=== PATIENT | female | born 1945 | race Caucasian/White ===

== ENCOUNTER 2018-10-05 16:43 | Observation (INO) | payer MEDICARE ==
[~2018-10-05] VITALS: Ht 154.9 cm; Wt 98.9 kg
--- OUTSIDE RECORDS SUMMARY | 2018-10-05 16:46 | XMS REPORT | Continuity of Care Document ---
Author Author [facility] Interface Address Unknown Phone Unavailable Problems Problem Status Onset Date Classification Date Reported Comments Source SOB Active 05/22/2018 [facility] SOB Active 05/22/2018 [facility] ACUTE ANEMIA Active 04/21/2018 [facility] ACUTE ANEMIA Active 04/21/2018 [facility] Laceration without foreign body of scalp, initial encounter 04/14/2018 08/24/2018 [facility] Closed head injury 02/04/2018 08/24/2018 [facility] Thyroid nodule 02/04/2018 08/24/2018 [facility] Laceration of scalp 02/04/2018 08/24/2018 [facility] FALL Active 02/04/2018 [facility] FALL Active 02/04/2018 [facility] Acute bronchitis, unspecified 01/03/2018 07/11/2018 [facility] SHORTNESS OF BREATH Active 12/21/2017 [facility] ACUTE EXACERBATION OF COPD Active 12/21/2017 [facility] Unspecified injury of head, initial encounter 08/24/2018 [facility] Nontoxic single thyroid nodule 08/24/2018 [facility] Fall in shower or empty bathtub, initial encounter 08/24/2018 [facility] Other shelter drug therapy 08/24/2018 [facility] Chronic obstructive pulmonary disease with exacerbation 07/11/2018 [facility] Chronic obstructive pulmonary disease with acute lower respiratory infection 07/11/2018 [facility] Obstructive sleep apnea (pediatric) 07/11/2018 [facility] Acute kidney failure, unspecified 07/11/2018 [facility] Obesity, unspecified 07/11/2018 [facility] Body mass index 36.0-36.9, adult 07/11/2018 [facility] ANEMIA, UNSPECIFIED Active [facility] CHRONIC OBSTRUCTIVE PULMONARY DISEASE W Active [facility] Medications Medication Details Route Status Patient Instructions Ordering Provider Order Date Source Acetylcysteine 200 MG/ML Inhalant Solution 400 mg, 2 mL, Route: INHALATION, Drug Form: SOLN, Dosing Weight 88.636, kg, RQ6H, Start date: 12/22/17 14:00:00 CDT, Duration: 30 day, Stop date: 01/21/18 8:00:00 CDT Inactive 12/22/2017 [facility] azithromycin 250 mg oral tablet See Instructions, Take 2 tablets by mouth the first day then 1 tablet by mouth daily on days 2-5., X 5 day, # 6 tab, 0 Refill(s) No Longer Active 12/22/2017 [facility] Nystatin 100 UNT/MG Topical Powder 1 appl, TOP, TID, X 7 day, # 15 gm, 0 Refill(s) No Longer Active 12/22/2017 [facility] {21 (Methylprednisolone 4 MG Oral Tablet [Medrol]) } Pack [Medrol Dosepak] See Instructions, PO, Take by mouth as directed on label., # 1 Pack, 0 Refill(s) No Longer Active 12/22/2017 [facility] {21 (Methylprednisolone 4 MG Oral Tablet [Medrol]) } Pack [Medrol Dosepak] See Instructions, PO, Take by mouth as directed on label., # 1 Pack, 0 Refill(s) Inactive 12/22/2017 [facility] azithromycin 250 mg oral tablet See Instructions, Take 2 tablets by mouth the first day then 1 tablet by mouth daily on days 2-5., X 5 day, # 6 tab, 0 Refill(s) Inactive 12/22/2017 [facility] Nystatin 100 UNT/MG Topical Powder 1 appl, TOP, TID, X 7 day, # 15 gm, 0 Refill(s) Inactive 12/22/2017 [facility] benzonatate 100 mg oral capsule 100 mg=1 cap, PO, TID, do not crush or chew, # 30 cap, 0 Refill(s) Active 12/21/2017 [facility] escitalopram 10 mg oral tablet 10 mg=1 tab, PO, Daily, # 30 tab, 0 Refill(s) Active 12/21/2017 [facility] solifenacin succinate 5 MG Oral Tablet [VESICARE] 5 mg=1 tab, PO, Daily, # 30 tab, 0 Refill(s) Active 12/21/2017 [facility] Advair Diskus 250 mcg-50 mcg inhalation powder 1 puff, INHALATION, Daily, 0 Refill(s) Active 12/21/2017 [facility] NS 1,000 mL 1,000 mL, Rate: 75 ml/hr, Infuse over: 13.3 hr, Route: IV, Dosing Weight 88.636 kg, Total Volume: 1,000, Start date: 08/10/18 10:22:00 CDT, Duration: 30 day, Stop date: 01/20/18 10:21:00 CDT, 1.99, m2 No Longer Active 12/21/2017 [facility] Prednisone 40 mg, 2 tab, Route: PO, Drug form: TAB, Daily, Dosing Weight 88.636, kg, Start date: 12/21/17 9:00:00 CDT, Duration: 5 day, Stop date: 12/25/17 9:00:00 CDTNotes: Take with food. No Longer Active 12/21/2017 [facility] Albuterol 0.833 MG/ML / Ipratropium [place] 0.167 MG/ML Inhalant Solution 3 mL, Route: NEB, Drug Form: SOLN, Dosing Weight 88.636, kg, RQ6H, Start date: 12/21/17 8:00:00 CDT, Duration: 30 day, Stop date: 01/20/18 2:00:00 CDTNotes: (Same as: Duoneb) No Longer Active 12/21/2017 [facility] Acetylcysteine 200 MG/ML Inhalant Solution 400 mg, 2 mL, Route: INHALATION, Drug Form: SOLN, Dosing Weight 88.636, kg, RQID, Start date: 12/21/17 7:00:00 CDT, Duration: 30 day, Stop date: 01/19/18 19:00:00 CDT No Longer Active 12/21/2017 [facility] Levofloxacin 750 mg, 150 mL, Route: IVPB, Drug form: SOLN, [id number], Dosing Weight 88.636, kg, for CrCl >49 mL/min, Start date: 12/21/17 6:00:00 CDT, Duration: 5 day, Stop date: 12/25/17 6:00:00 CDT, ABX Indication: Non-PNA Respiratory Tract InfectionNotes: (Same as:Levaquin) No Longer Active 12/21/2017 [facility] Azithromycin 500 mg, Route: PO, ONCE, Dosing Weight 88.636, kg, Start date: 12/21/17 5:48:00 CDT, Stop date: 12/21/17 5:48:00 CDT, Initial Dose, ABX Indication: Non-PNA Respiratory Tract Infection Inactive 12/21/2017 [facility] Albuterol 0.833 MG/ML / Ipratropium [place] 0.167 MG/ML Inhalant Solution 3 mL, Route: NEB, Drug Form: SOLN, Dosing Weight 88.636, kg, RQID, STAT, Start date: 12/21/17 2:56:00 CDT, Duration: 30 day, Stop date: 01/19/18 19:00:00 CDTNotes: (Same as: Duoneting) Inactive 12/21/2017 [facility] Albuterol 0.833 MG/ML / Ipratropium [place] 0.167 MG/ML Inhalant Solution 3 mL, Route: NEB, Drug Form: SOLN, Dosing Weight 88.636, kg, ONCE, PRN as needed for shortness of breath or wheezing, STAT, Start date: 12/21/17 0:50:00 CDT Inactive 12/21/2017 [facility] methylPREDNISolone SODium SUCCinate 125 mg, 2 mL, Route: IVP, Drug form: INJ, ONCE, Dosing Weight 88.636, kg, Priority: STAT, Start date: 12/21/17 0:50:00 CDT, Stop date: 12/21/17 0:50:00 CDTNotes: (Same as:Solu- MEDROL, A-Methapred) Inactive 12/21/2017 [facility] Allergies, Adverse Reactions, Alerts Substance Category Reaction Severity Reaction type Status Date Reported Comments Source ampicillin Assertion Amoxicillin, HALLUCINATIONS Drug allergy Active [facility] amoxicillin Assertion HALLUCINATIONS Drug allergy Active [facility] predniSONE Assertion Drug allergy Active [facility] Immunizations Immunization Date Given Site Status Last Updated Comments Source pneumococcal 23-valent vaccine<sup>1</sup> 04/24/2018 Not Given [facility] Results Order Name Results Value Reference Range Date Interpretation Comments Source Chest 1view DX Chest 1view DX Clinical Indication: - cough, dyspnea Comparison: Comparison is made to chest radiograph examination dated 04/24/2018. FINDINGS: The cardiomediastinal silhouette is stable appearance. The thoracic aorta appears calcified. There is central pulmonary venous congestion with minimal left basilar pulmonary opacities and minimal blunting of the left costophrenic angle. No pneumothorax. Midline trachea. IMPRESSION: 1. Borderline cardiomegaly with central pulmonary venous congestion minimal left basilar subsegmental atelectasis versus infiltrates. 2. Possible small left pleural effusion versus pleural thickening/scarring. SL: [id number] 05/22/2018 - - Read by: Yash Man MD Dictated Date/time: 05/22/18 13:47 Electronically Signed by: Yash Man MD 05/22/18 13:49 FINAL REPORT [facility] US Chest US Patient Name: DEEPA HERNANDEZ : 1945; Age: 73 years Female MR: [id number] Study: Chest US 04/26/2018 10:53 [facility]YLIC FABRICATOR CLINICAL INDICATION: thoracentesis - pleural effusion. COMPARISON: Chest radiograph on 04/24/2018 TECHNIQUE: Limited sonographic evaluation of the left chest was performed. FINDINGS: Minimal left pleural fluid. IMPRESSION: Thoracentesis deferred at this time. SL: [id number] 04/26/2018 - - Read by: Bo Whaley MD Dictated Date/time: 04/26/18 15:01 Electronically Signed by: Bo Whaley MD 04/26/18 15:02 FINAL REPORT [facility] 1view DX Chest 1view DX Clinical Indication: - shortness of breath. Comparison: 04/21/2018. TECHNIQUE: AP 1 view chest radiograph was performed. FINDINGS: LUNGS: Unchanged lung volumes. Unchanged left mid to lower lung zone opacification with airspace opacities and medium sized left pleural effusion. This may be related to underlying left lower lobe pneumonia. No right pleural effusion or pneumothorax. HEART AND MEDIASTINUM: The heart size is unchanged. There is a mildly tortuous thoracic aorta. The trachea is midline. OSSEOUS STRUCTURES: Small degenerative osteophytes and mild degenerative disk disease changes are seen in the thoracic spine. IMPRESSION: 1. No significance change in correlation with the prior chest radiograph dated 04/21/2018. SL: [id number] 04/24/2018 - - Read by: Kt Daniels MD Dictated Date/time: 04/24/18 15:22 Electronically Signed by: Kt Daniels MD 04/24/18 15:23 FINAL REPORT [facility] 1view DX Chest 1view DX Patient Name: DEEPA HERNANDEZ : 1945; Age: 73 years y/o Female MR: [id number] Study: Chest 1view DX 04/21/2018 12:16 PM ACRYLIC FABRICATOR Ordering Physician: Clair Jackson MD Comparison: Chest radiograph 02/04/2018 Clinical Indication: - SOB, PMH COPD, congestion Findings: Dense opacification of the left mid and lower lung with suspected associated pleural effusion. The right lung is clear. The cardiac silhouette is obscured. Midline trachea. Atherosclerotic calcifications of the aortic arch. Degenerative changes of the spine and shoulders. IMPRESSION: Left sided airspace opacities concerning for pneumonia. SL: [id number] 04/21/2018 - - Read by: Westley Castellanos Dictated Date/time: 04/21/18 13:12 Electronically Signed by: Westley Castellanos 04/21/18 13:13 FINAL REPORT [facility] Brain wo contrast CT Brain wo contrast CT Clinical Indication: - fall, laceration. Comparison: None. TECHNIQUE: CT images were obtained from the foramen magnum to the vertex without the use of intravenous contrast on a multidetector CT. CT imaging was performed with exposure control parameters to reduce radiation dose. Coronal and sagittal reconstructions were obtained. CT imaging performed at this location utilizes radiation dose optimization techniques which include one or more of the following: -Automated exposure control -Adjustment of the mA and/or kV according to patient size -Use of iterative reconstruction technique CT Radiation Dose DLP 901.26 mGy-cm FINDINGS: BRAIN PARENCHYMA: There is generalized brain parenchymal atrophy related to the patient's age. Mild nonspecific periventricular white matter disease changes. No focal mass lesions on this noncontrast head CT. No mass effect, midline shift or edema. There are no intra-axial or extra-axial fluid collections, intraventricular or intraparenchymal hemorrhage. No low attenuation demarcating areas on this non-contrast CT to suggest subacute stroke. VENTRICLES: The lateral ventricles, third and fourth ventricles appear unremarkable. The basilar cisterns are normal. ORBITS, MASTOIDS AND PARANASAL SINUSES: The visualized orbits are unremarkable. The visualized paranasal sinuses are unremarkable. The mastoid air cells are clear. SKULL: There are no osseous abnormalities. If there is further concern for intracranial pathology or acute stroke, MRI of the brain may be performed for complete assessment. IMPRESSION: No acute intracranial hemorrhage or mass effect. No calvarial fracture. SL: [id number] 02/04/2018 - - Read by: Isabel Mae MD Dictated Date/time: 02/04/18 20:58 Electronically Signed by: Isabel Mae MD 02/04/18 21:05 FINAL REPORT [facility] Pelvis AP DX Pelvis AP DX Exam: Pelvis AP DX Clinical Indication: Pain, Trauma - fall, laceration. Pelvic pain after a fall Comparison: None FINDINGS: AP view of the pelvis was obtained. Patient is rotated to the left. There is no appreciable fracture or dislocation. The pelvic and obturator rings are intact. The pubic rami are intact. The symphysis pubis and sacroiliac joints are unremarkable. The visualized sacral foramina are unremarkable. The hip joint spaces, proximal femoral regions and acetabular regions are unremarkable. If there is further concern, recommend follow-up radiographs or bone scan for complete assessment. IMPRESSION: No appreciable fracture. SL: CHIP 02/04/2018 - - Read by: Fauzia Hahn MD Dictated Date/time: 02/04/18 20:43 Electronically Signed by: Fauzia Hahn MD 02/04/18 20:44 FINAL REPORT [facility] Chest 1view DX Chest 1view DX Clinical Indication: - fall, laceration. Comparison: 12/21/2017 Findings: Frontal view of the chest was obtained. Leads overlie the chest. The cardiac silhouette is enlarged. Atheromatous changes are present in the aorta. There is a left pleural opacity similar to prior exam. No edema. No pneumothorax. No acute osseous abnormality. IMPRESSION: Enlarged cardiac silhouette with similar left pleural opacity which may be related to pleural fluid tracking laterally. SL: CHIP 02/04/2018 - - Read by: Fauzia Hahn MD Dictated Date/time: 02/04/18 20:41 Electronically Signed by: Fauzia Hahn MD 02/04/18 20:42 FINAL REPORT [facility] Spine cervical wo contrast CT Spine cervical wo contrast CT UNENHANCED CT CERVICAL SPINE CLINICAL INDICATION: Pain Post Trauma - fall, laceration TECHNIQUE: Unenhanced CT of the cervical spine was performed with multiplanar reconstructions. The dose length product is 757 mGy-cm. COMPARISON: None FINDINGS: There is no acute cervical spine fracture or dislocation. There is diffuse idiopathic skeletal hyperostosis. There are multilevel degenerative disc and spondylotic changes of the spine. There is mild spinal canal stenosis C3-C4, C4-C5 and C5-C6. There is a ill-defined hypodense lobular mass in the thyroid isthmus that measures 1.6 x 2.7 cm axial dimension. There are no cervical chain lymph nodes that measure greater than a centimeter in short axis. There are nonspecific shotty small cervical chain lymph nodes. There is mild atherosclerotic calcification of the carotid arteries. The lung apices reveal no acute process. IMPRESSION: 1. There is a 1.6 x 2.7 cm indeterminate hypodense lobular mass in the thyroid isthmus. This could be malignant. A nonemergent follow-up thyroid ultrasound is recommended to evaluate further. 2. There is no acute cervical spine fracture or dislocation. 3. There are no cervical chain lymph nodes that measure greater than a centimeter in short axis. SL: [email or web address] 02/04/2018 - - Read by: [place] DO Dictated Date/time: 02/04/18 20:59 Electronically Signed by: [place] DO 02/04/18 21:10 FINAL REPORT [facility] CHEM PANEL eGFR 27 mL/min/1.73m2 12/22/2017 Result Comment: The eGFR is calculated using the CKD-EPI formula. In most young, healthy individuals the eGFR will be >90 mL/min/1.73m2. The eGFR declines with age. An eGFR of 60-89 may be normal in some populations, particularly the elderly, for whom the CKD-EPI formula has not been extensively validated. Use of the eGFR is not recommended in the following populations: Individuals with unstable creatinine concentrations, including patients and those with serious co-morbid conditions. Patients with extremes in muscle mass or diet. The data above are obtained from the National Kidney Disease Education Program (NKDEP) which additionally recommends that when the eGFR is used in patients with extremes of body mass index for purposes of drug dosing, the eGFR should be multiplied by the estimated BMI. [facility] CHEM PANEL AGAP 11.8 meq/L 10.0 - 20.0 12/22/2017 [facility] CHEM PANEL CO2 25 meq/L 24 - 32 12/22/2017 [facility] CHEM PANEL Calcium Lvl 8.5 mg/dL 8.5 - 10.5 12/22/2017 [facility] CHEM PANEL Potassium Lvl 4.8 meq/L 3.5 - 5.1 12/22/2017 [facility] CHEM PANEL Chloride Lvl 113 meq/L 95 - 109 12/22/2017 [facility] CHEM PANEL Sodium Lvl 145 meq/L 135 - 145 12/22/2017 [facility] CHEM PANEL BUN 46 mg/dL 7 - 22 12/22/2017 [facility] CHEM PANEL Creatinine Lvl 1.83 mg/dL 0.50 - 1.40 12/22/2017 [facility] CHEM PANEL Glucose Lvl 124 mg/dL 70 - 99 12/22/2017 [facility] HEMATOLOGY RBC 4.10 M/CMM 4.20 - 5.40 12/22/2017 [facility] WBC 8.6 K/CMM 3.7 - 10.4 12/22/2017 [facility] Hct 34.8 % 36.0 - 48.0 12/22/2017 [facility] Hgb 11.6 g/dL 12.0 - 16.0 12/22/2017 [facility] MCV 85.0 fL 80.0 - 98.0 12/22/2017 [facility] Platelet 113 K/CMM 133 - 450 12/22/2017 [facility] MCH 28.2 pg 27.0 - 31.0 12/22/2017 [facility] RDW 14.6 % 11.5 - 14.5 12/22/2017 [facility] MCHC 33.2 g/dL 32.0 - 36.0 12/22/2017 [facility] MPV 8.5 fL 7.4 - 10.4 12/22/2017 [facility] Lymphocytes 2.9 % 20.0 - 40.0 12/22/2017 [facility] Segs 91.2 % 45.0 - 75.0 12/22/2017 [facility] Monocytes 5.8 % 2.0 - 12.0 12/22/2017 [facility] Monocytes # 0.5 K/CMM 0.0 - 0.8 12/22/2017 [facility] HEMATOLOGY Basophils 0.1 % 0.0 - 1.0 12/22/2017 [facility] Neutrophils # 7.8 K/CMM 1.5 - 8.1 12/22/2017 [facility] Lymphocytes # 0.2 K/CMM 1.0 - 5.5 12/22/2017 [facility] URINE AND STOOL UA Urobilinogen <=1.0 mg/dL 0.1 - 1.0 12/21/2017 [facility] URINE AND STOOL UA Nitrite Negative (12/21/17 2:43 AM) Negative 12/21/2017 [facility] URINE AND STOOL UA Blood Small *ABN* (12/21/17 2:43 AM) Negative 12/21/2017 [facility] URINE AND STOOL UA Protein Negative mg/dL Negative mg/dL 12/21/2017 [facility] URINE AND STOOL UA Glucose Negative mg/dL Negative mg/dL 12/21/2017 [facility] URINE AND STOOL UA Ketones Negative mg/dL Negative mg/dL 12/21/2017 [facility] URINE AND STOOL UA Bili Negative *NA* (12/21/17 2:43 AM) Negative 12/21/2017 [facility] URINE AND STOOL UA pH 5.0 5.0 - 8.0 12/21/2017 [facility] URINE AND STOOL UA RBC 3 /HPF 0 - 2 12/21/2017 [facility] URINE AND STOOL UA WBC 1 /HPF 0 - 5 12/21/2017 [facility] URINE AND STOOL UA Leuk Est Negative (12/21/17 2:43 AM) Negative 12/21/2017 [facility] URINE AND STOOL UA Sq Epi Occasional /LPF Few /LPF 12/21/2017 [facility] URINE AND STOOL UA Spec Grav 1.020 <=1.030 12/21/2017 [facility] URINE AND STOOL UA Bacteria Occasional /HPF None Seen /HPF 12/21/2017 [facility] URINE AND STOOL UA Turbidity Clear (12/21/17 2:43 AM) Clear 12/21/2017 [facility] URINE AND STOOL UA Color Yellow *NA* (12/21/17 2:43 AM) Yellow 12/21/2017 [facility] CARDIAC ENZYMES Total CK 35 unit/L 12 - 191 12/21/2017 [facility] CARDIAC ENZYMES CK MB null 0.5 - 3.6 12/21/2017 [facility] CARDIAC ENZYMES Troponin-I null 0.00 - 0.40 12/21/2017 [facility] CARDIAC ENZYMES CK MB Index null 0.0 - 2.5 12/21/2017 [facility] CHEM PANEL eGFR 26 mL/min/1.73m2 12/21/2017 Result Comment: The eGFR is calculated using the CKD-EPI formula. In most young, healthy individuals the eGFR will be >90 mL/min/1.73m2. The eGFR declines with age. An eGFR of 60-89 may be normal in some populations, particularly the elderly, for whom the CKD-EPI formula has not been extensively validated. Use of the eGFR is not recommended in the following populations: Individuals with unstable creatinine concentrations, including patients and those with serious co-morbid conditions. Patients with extremes in muscle mass or diet. The data above are obtained from the National Kidney Disease Education Program (NKDEP) which additionally recommends that when the eGFR is used in patients with extremes of body mass index for purposes of drug dosing, the eGFR should be multiplied by the estimated BMI. [facility] CHEM PANEL Alk Phos 75 unit/L 39 - 136 12/21/2017 [facility] CHEM PANEL Bili Total 0.3 mg/dL 0.2 - 1.3 12/21/2017 [facility] CHEM PANEL AGAP 11.0 meq/L 10.0 - 20.0 12/21/2017 [facility] CHEM PANEL AST 20 unit/L 0 - 37 12/21/2017 [facility] CHEM PANEL ALT 17 unit/L 0 - 65 12/21/2017 [facility] CHEM PANEL Albumin Lvl 3.0 g/dL 3.5 - 5.0 12/21/2017 [facility] CHEM PANEL B/C Ratio 22 6 - 25 12/21/2017 [facility] CHEM PANEL Globulin 3.9 g/dL 2.7 - 4.2 12/21/2017 [facility] CHEM PANEL A/G Ratio 0.8 0.7 - 1.6 12/21/2017 [facility] CHEM PANEL Glucose Lvl 112 mg/dL 70 - 99 12/21/2017 [facility] CHEM PANEL BUN 42 mg/dL 7 - 22 12/21/2017 [facility] CHEM PANEL Creatinine Lvl 1.90 mg/dL 0.50 - 1.40 12/21/2017 [facility] CHEM PANEL Calcium Lvl 8.1 mg/dL 8.5 - 10.5 12/21/2017 [facility] CHEM PANEL Total Protein 6.9 g/dL 6.4 - 8.4 12/21/2017 [facility] CHEM PANEL CO2 28 meq/L 24 - 32 12/21/2017 [facility] CHEM PANEL Chloride Lvl 108 meq/L 95 - 109 12/21/2017 [facility] CHEM PANEL Potassium Lvl 4.0 meq/L 3.5 - 5.1 12/21/2017 [facility] CHEM PANEL Sodium Lvl 143 meq/L 135 - 145 12/21/2017 [facility] HEMATOLOGY WBC 5.4 K/CMM 3.7 - 10.4 12/21/2017 [facility] HEMATOLOGY Hct 37.9 % 36.0 - 48.0 12/21/2017 [facility] Hgb 12.5 g/dL 12.0 - 16.0 12/21/2017 [facility] RBC 4.42 M/CMM 4.20 - 5.40 12/21/2017 [facility] MCHC 33.1 g/dL 32.0 - 36.0 12/21/2017 [facility] MCV 85.6 fL 80.0 - 98.0 12/21/2017 [facility] MPV 8.3 fL 7.4 - 10.4 12/21/2017 [facility] Platelet 130 K/CMM 133 - 450 12/21/2017 [facility] RDW 14.8 % 11.5 - 14.5 12/21/2017 [facility] MCH 28.4 pg 27.0 - 31.0 12/21/2017 [facility] PTT 30.0 s 22.9 - 35.8 12/21/2017 [facility] PT 14.7 s 12.0 - 14.7 12/21/2017 [facility] INR 1.15 0.85 - 1.17 12/21/2017 [facility] Lymphocytes # 0.8 K/CMM 1.0 - 5.5 12/21/2017 [facility] Segs 65.3 % 45.0 - 75.0 12/21/2017 [facility] Eosinophils 6.3 % 0.0 - 4.0 12/21/2017 [facility] Lymphocytes 14.4 % 20.0 - 40.0 12/21/2017 [facility] Monocytes 13.5 % 2.0 - 12.0 12/21/2017 [facility] Basophils 0.5 % 0.0 - 1.0 12/21/2017 [facility] Neutrophils # 3.5 K/CMM 1.5 - 8.1 12/21/2017 [facility] Monocytes # 0.7 K/CMM 0.0 - 0.8 12/21/2017 [facility] Eosinophils # 0.3 K/CMM 0.0 - 0.5 12/21/2017 [facility] Chest 1view DX Chest 1view DX Clinical Indication: - Dyspnea Comparison: None FINDINGS: Single frontal radiograph of the chest is performed. Heart size is upper limits of normal. Mediastinal contours are unremarkable. Impression shaped opacity overlying the left lung base favored represent artifact related to overlying soft tissues. No confluent infiltrate seen. No pleural effusion or pneumothorax. No acute osseous abnormality. IMPRESSION: Borderline heart size. Otherwise no radiographic evidence for acute process in the chest. SL: [id number] 12/21/2017 - - Read by: Chip Dorado MD Dictated Date/time: 12/21/17 01:22 Electronically Signed by: Chip Dorado MD 12/21/17 01:23 FINAL REPORT [facility] Vital Signs Vital Sign Value Date Comments Source Respitory Rate 18 02/05/2018 [facility] Systolic (mm Hg) 127 02/05/2018 [facility] Diastolic (mm Hg) 81 02/05/2018 [facility] Temperature Oral (F) 98.1 F 02/05/2018 [facility] Heart Rate 76 02/05/2018 [facility] Height 154.94 cm 02/05/2018 [facility] Weight 113.636 02/05/2018 [facility] BMI Calculated 47.34 02/05/2018 [facility] Respitory Rate 18 02/05/2018 [facility] Temperature Oral (F) 98.3 F 02/05/2018 [facility] Heart Rate 90 02/05/2018 [facility] Systolic (mm Hg) 124 02/05/2018 [facility] Diastolic (mm Hg) 80 02/05/2018 [facility] Systolic (mm Hg) 125 12/22/2017 [facility] Diastolic (mm Hg) 54 12/22/2017 [facility] Temperature Oral (F) 97.7 F 12/22/2017 [facility] Respitory Rate 18 12/22/2017 [facility] Heart Rate 84 12/22/2017 [facility] Systolic (mm Hg) 131 12/22/2017 [facility] Diastolic (mm Hg) 57 12/22/2017 [facility] Respitory Rate 18 12/22/2017 [facility] Temperature Oral (F) 97.4 F 12/22/2017 [facility] Heart Rate 89 12/22/2017 [facility] Respitory Rate 18 12/22/2017 [facility] Height 152.4 cm 12/22/2017 [facility] Systolic (mm Hg) 131 12/22/2017 [facility] Diastolic (mm Hg) 71 12/22/2017 [facility] Temperature Oral (F) 97.6 F 12/22/2017 [facility] Heart Rate 84 12/22/2017 [facility] BMI Calculated 39.14 12/21/2017 [facility] Weight 90.909 12/21/2017 [facility] Height 152.4 cm 12/21/2017 [facility] Weight 88.636 12/21/2017 [facility] BMI Calculated 36.92 12/21/2017 [facility] Height 154.94 cm 12/21/2017 [facility] Encounters Location Location Details Encounter Type Encounter Number Reason For Visit Attending Provider ADM Date DC Date Status Source [facility] Observation [id number] Flako Cruz 12/21/2017 12/22/2017 [facility] Emergency [id number] Leticia De Luna 02/05/2018 02/05/2018 [facility] Procedures Procedure Code Date Perfomer Comments Source Bilateral extraction of cataracts [id number] [facility] Endoscopy of upper gastrointestinal tract and dilation of esophageal stricture [id number] [facility]
--- OUTSIDE RECORDS SUMMARY | 2018-10-05 16:46 | XMS REPORT | Summary of Care ---
Author Author [facility] Organization [facility] Address Unknown Phone Unavailable Encounter HQ Gee(LOGAN) [id number] Date(s): 12/21/17 - 12/22/17 [facility] [address] [place] [address]- [phone] Encounter Diagnosis Acute bronchitis, unspecified (Final) - 01/02/18 Chronic obstructive pulmonary disease with (acute) exacerbation (Final) - Chronic obstructive pulmonary disease with acute lower respiratory infection (Final) - Obstructive sleep apnea (adult) (pediatric) (Final) - Acute kidney failure, unspecified (Final) - Obesity, unspecified (Final) - Body mass index (BMI) 36.0-36.9, adult (Final) - Discharge Disposition: Home or Self Care Attending Physician: Flako Cruz MD Admitting Physician: Flako Curz MD Vital Signs 1 2 3 Most recent to oldest [Reference Range]: 152.4 cm (12/22/17 4:57 AM) 152.4 cm (12/21/17 11:53 AM) 154.94 cm (12/21/17 12:10 AM) Height 90.909 kg (12/22/17 4:57 AM) Current Weight 97.7 DegF (12/22/17 11:51 AM) 97.4 DegF (12/22/17 7:26 AM) 97.6 DegF (12/22/17 3:11 AM) Temperature Oral [96.4-99.1 DegF] 125/54 mmHg (12/22/17 11:51 AM) 131/57 mmHg (12/22/17 7:26 AM) 131/71 mmHg (12/22/17 3:11 AM) Blood Pressure [90-140/60-90 mmHg] 18 BRMIN (12/22/17 11:51 AM) 18 BRMIN (12/22/17 7:26 AM) 18 BRMIN (12/22/17 6:03 AM) Respiratory Rate [14-20 BRMIN] 84 bpm (12/22/17 11:51 AM) 89 bpm (12/22/17 7:26 AM) 84 bpm (12/22/17 3:11 AM) Peripheral Pulse Rate [60-100 bpm] 90.909 kg (12/21/17 11:53 AM) 88.636 kg (12/21/17 12:10 AM) Weight 39.14 m2 (12/21/17 11:53 AM) 36.92 m2 (12/21/17 12:10 AM) Body Mass Index Problem List No data available for this section Allergies, Adverse Reactions, Alerts Substance Reaction Severity Status ampicillin Amoxicillin Active HALLUCINATIONS amoxicillin HALLUCINATIONS Active predniSONE Active Medications acetylcysteine 20% inhalation solution 400 mg, 2 mL, Route: INHALATION, Drug Form: SOLN, Dosing Weight 88.636, kg, RQID , Start date: 12/21/17 7:00:00 CDT, Duration: 30 day, Stop date: 01/19/18 19:00: 00 CDT Start Date: 12/21/17 Stop Date: 12/22/17 Status: Discontinued acetylcysteine 20% inhalation solution 400 mg, 2 mL, Route: INHALATION, Drug Form: SOLN, Dosing Weight 88.636, kg, RQ6H , Start date: 12/22/17 14:00:00 CDT, Duration: 30 day, Stop date: 01/21/18 8:00: 00 CDT Start Date: 12/22/17 Stop Date: 12/22/17 Status: Discontinued Advair Diskus 250 mcg-50 mcg inhalation powder 1 puff, INHALATION, Daily, 0 Refill(s) Start Date: 12/21/17 Status: Ordered albuterol-ipratropium 2.5-0.5 mg inhalation solution 3 mL, Route: NEB, Drug Form: SOLN, Dosing Weight 88.636, kg, RQID, STAT, Start d ate: 12/21/17 2:56:00 CDT, Duration: 30 day, Stop date: 01/19/18 19:00:00 CDT Notes: (Same as: Edi) Start Date: 12/21/17 Stop Date: 12/21/17 Status: Discontinued albuterol-ipratropium 2.5-0.5 mg inhalation solution 3 mL, Route: NEB, Drug Form: SOLN, Dosing Weight 88.636, kg, RQ6H, Start date: 0 12/21/17 8:00:00 CDT, Duration: 30 day, Stop date: 01/20/18 2:00:00 CDT Notes: (Same as: Edi) Start Date: 12/21/17 Stop Date: 12/22/17 Status: Discontinued albuterol-ipratropium 2.5-0.5 mg inhalation solution 3 mL, Route: NEB, Drug Form: SOLN, Dosing Weight 88.636, kg, ONCE, PRN as needed for shortness of breath or wheezing, STAT, Start date: 12/21/17 0:50:00 CDT Start Date: 12/21/17 Stop Date: 12/21/17 Status: Completed azithromycin 500 mg, Route: PO, ONCE, Dosing Weight 88.636, kg, Start date: 12/21/17 5:48:00 CDT, Stop date: 12/21/17 5:48:00 CDT, Initial Dose, ABX Indication: Non-PNA Resp iratory Tract Infection Start Date: 12/21/17 Stop Date: 12/21/17 Status: Completed azithromycin 250 mg oral tablet See Instructions, Take 2 tablets by mouth the first day then 1 tablet by mouth d aily on days 2-5., X 5 day, # 6 tab, 0 Refill(s) Start Date: 12/22/17 Stop Date: 12/27/17 Status: Completed azithromycin 250 mg oral tablet See Instructions, Take 2 tablets by mouth the first day then 1 tablet by mouth d aily on days 2-5., X 5 day, # 6 tab, 0 Refill(s) Start Date: 12/22/17 Stop Date: 12/22/17 Status: Discontinued benzonatate 100 mg oral capsule 100 mg=1 cap, PO, TID, do not crush or chew, # 30 cap, 0 Refill(s) Start Date: 12/21/17 Stop Date: 12/31/17 Status: Ordered escitalopram 10 mg oral tablet 10 mg=1 tab, PO, Daily, # 30 tab, 0 Refill(s) Start Date: 12/21/17 Status: Ordered levofloxacin 750 mg, 150 mL, Route: IVPB, Drug form: SOLN, [id number], Dosing Weight 88.636, kg, for CrCl >49 mL/min, Start date: 12/21/17 6:00:00 CDT, Duration: 5 day, Stop date: 12/25/17 6:00:00 CDT, ABX Indication: Non-PNA Respiratory Tract Infection Notes: (Same as:Levaquin) Start Date: 12/21/17 Stop Date: 12/22/17 Status: Discontinued Medrol Dosepak 4 mg oral tablet See Instructions, PO, Take by mouth as directed on label., # 1 Pack, 0 Refill(s) Start Date: 12/22/17 Stop Date: 04/28/18 Status: Discontinued Medrol Dosepak 4 mg oral tablet See Instructions, PO, Take by mouth as directed on label., # 1 Pack, 0 Refill(s) Start Date: 12/22/17 Stop Date: 12/22/17 Status: Discontinued methylPREDNISolone SODium SUCCinate 125 mg, 2 mL, Route: IVP, Drug form: INJ, ONCE, Dosing Weight 88.636, kg, Priori ty: STAT, Start date: 12/21/17 0:50:00 CDT, Stop date: 12/21/17 0:50:00 CDT Notes: (Same as:Solu-MEDROL, A-Methapred) Start Date: 12/21/17 Stop Date: 12/21/17 Status: Completed NS 1,000 mL 1,000 mL, Rate: 75 ml/hr, Infuse over: 13.3 hr, Route: IV, Dosing Weight 88.636 kg, Total Volume: 1,000, Start date: 12/21/17 10:22:00 CDT, Duration: 30 day, St op date: 01/20/18 10:21:00 CDT, 1.99, m2 Start Date: 12/21/17 Stop Date: 12/22/17 Status: Discontinued nystatin topical 100,000 units/g powder 1 appl, TOP, TID, X 7 day, # 15 gm, 0 Refill(s) Start Date: 12/22/17 Stop Date: 12/29/17 Status: Completed nystatin topical 100,000 units/g powder 1 appl, TOP, TID, X 7 day, # 15 gm, 0 Refill(s) Start Date: 12/22/17 Stop Date: 12/22/17 Status: Discontinued predniSONE 40 mg, 2 tab, Route: PO, Drug form: TAB, Daily, Dosing Weight 88.636, kg, Start date: 12/21/17 9:00:00 CDT, Duration: 5 day, Stop date: 12/25/17 9:00:00 CDT Notes: Take with food. Start Date: 12/21/17 Stop Date: 12/22/17 Status: Discontinued VESIcare 5 mg oral tablet 5 mg=1 tab, PO, Daily, # 30 tab, 0 Refill(s) Start Date: 12/21/17 Status: Ordered Results ELECTROLYTES Most recent to 1 2 oldest [Reference Range]: Sodium Lvl [135-145 145 mEq/L 143 mEq/L mEq/L] (12/22/17 3:22 AM) (12/21/17 12:55 AM) Potassium Lvl 4.8 mEq/L 4.0 mEq/L [3.5-5.1 mEq/L] (12/22/17 3:22 AM) (12/21/17 12:55 AM) Chloride Lvl [95-109 113 mEq/L 108 mEq/L mEq/L] *HI* (12/21/17 12:55 AM) (12/22/17 3:22 AM) CO2 [24-32 mEq/L] 25 mEq/L 28 mEq/L (12/22/17 3:22 AM) (12/21/17 12:55 AM) AGAP [10.0-20.0 11.8 mEq/L 11.0 mEq/L mEq/L] (12/22/17 3:22 AM) (12/21/17 12:55 AM) CHEM PANEL Most recent to 1 2 oldest [Reference Range]: Creatinine Lvl 1.83 mg/dL 1.90 mg/dL [0.50-1.40 mg/dL] *HI* *HI* (12/22/17 3:22 AM) (12/21/17 12:55 AM) eGFR 27 mL/min/1.73m2 1 26 mL/min/1.73m2 2 *NA* *NA* (12/22/17 3:22 AM) (12/21/17 12:55 AM) BUN [7-22 mg/dL] 46 mg/dL 42 mg/dL *HI* *HI* (12/22/17 3:22 AM) (12/21/17 12:55 AM) B/C Ratio [6-25] 22 (12/21/17 12:55 AM) Glucose Lvl [70-99 124 mg/dL 112 mg/dL mg/dL] *HI* *HI* (12/22/17 3:22 AM) (12/21/17 12:55 AM) Total Protein 6.9 g/dL [6.4-8.4 g/dL] (12/21/17 12:55 AM) Albumin Lvl [3.5-5.0 3.0 g/dL g/dL] *LOW* (12/21/17 12:55 AM) Globulin [2.7-4.2 3.9 g/dL g/dL] (12/21/17 12:55 AM) A/G Ratio [0.7-1.6] 0.8 (12/21/17 12:55 AM) Calcium Lvl 8.5 mg/dL 8.1 mg/dL [8.5-10.5 mg/dL] (12/22/17 3:22 AM) *LOW* (12/21/17 12:55 AM) ALT [0-65 unit/L] 17 unit/L (12/21/17 12:55 AM) AST [0-37 unit/L] 20 unit/L (12/21/17 12:55 AM) Alk Phos [39-136 75 unit/L unit/L] (12/21/17 12:55 AM) Bili Total [0.2-1.3 0.3 mg/dL mg/dL] (12/21/17 12:55 AM) 1Result Comment: The eGFR is calculated using the [...] from the National Kidney Disease Education Program ( NKDEP) which additionally recommends that when the eGFR is used in patients with extremes of body mass index for purposes of drug dosing, the eGFR should be mul tiplied by the estimated BMI. 2Result Comment: The eGFR is calculated using the [...] from the National Kidney Disease Education Program ( NKDEP) which additionally recommends that when the eGFR is used in patients with extremes of body mass index for purposes of drug dosing, the eGFR should be mul tiplied by the estimated BMI. CARDIAC ENZYMES Most recent to 1 2 oldest [Reference Range]: Total CK [12-191 35 unit/L unit/L] (12/21/17 12:55 AM) CK MB [0.5-3.6 <1.0 ng/mL ng/mL] (12/21/17 12:55 AM) CK MB Index <2.9 [0.0-2.5] *HI* (12/21/17 12:55 AM) Troponin-I <0.02 ng/mL [0.00-0.40 ng/mL] (12/21/17 12:55 AM) URINE AND STOOL Most recent to 1 2 oldest [Reference Range]: UA Turbidity [Clear] Clear (12/21/17 2:43 AM) UA Color [Yellow] Yellow *NA* (12/21/17 2:43 AM) UA pH [5.0-8.0] 5.0 (12/21/17 2:43 AM) UA Spec Grav 1.020 [<=1.030] (12/21/17 2:43 AM) UA Glucose [Negative Negative mg/dL mg/dL] *NA* (12/21/17 2:43 AM) UA Blood [Negative] Small *ABN* (12/21/17 2:43 AM) UA Ketones [Negative Negative mg/dL mg/dL] *NA* (12/21/17 2:43 AM) UA Protein [Negative Negative mg/dL mg/dL] (12/21/17 2:43 AM) UA Urobilinogen <=1.0 mg/dL [0.1-1.0 mg/dL] *NA* (12/21/17 2:43 AM) UA Bili [Negative] Negative *NA* (12/21/17 2:43 AM) UA Leuk Est Negative [Negative] (12/21/17 2:43 AM) UA Nitrite Negative [Negative] (12/21/17 2:43 AM) UA WBC [0-5 /HPF] 1 /HPF (12/21/17 2:43 AM) UA RBC [0-2 /HPF] 3 /HPF *HI* (12/21/17 2:43 AM) UA Bacteria [None Occasional /HPF Seen /HPF] *NA* (12/21/17 2:43 AM) UA Sq Epi [Few /LPF] Occasional /LPF *NA* (12/21/17 2:43 AM) HEMATOLOGY Most recent to 1 2 oldest [Reference Range]: WBC [3.7-10.4 K/CMM] 8.6 K/CMM 5.4 K/CMM (12/22/17 3:22 AM) (12/21/17 12:55 AM) RBC [4.20-5.40 4.10 M/CMM 4.42 M/CMM M/CMM] *LOW* (12/21/17 12:55 AM) (12/22/17 3:22 AM) Hgb [12.0-16.0 g/dL] 11.6 g/dL 12.5 g/dL *LOW* (12/21/17 12:55 AM) (12/22/17 3:22 AM) Hct [36.0-48.0 %] 34.8 % 37.9 % *LOW* (12/21/17 12:55 AM) (12/22/17 3:22 AM) MCV [80.0-98.0 fL] 85.0 fL 85.6 fL (12/22/17 3:22 AM) (12/21/17 12:55 AM) MCH [27.0-31.0 pg] 28.2 pg 28.4 pg (12/22/17 3:22 AM) (12/21/17 12:55 AM) MCHC [32.0-36.0 33.2 g/dL 33.1 g/dL g/dL] (12/22/17 3:22 AM) (12/21/17 12:55 AM) RDW [11.5-14.5 %] 14.6 % 14.8 % *HI* *HI* (12/22/17 3:22 AM) (12/21/17 12:55 AM) MPV [7.4-10.4 fL] 8.5 fL 8.3 fL (12/22/17 3:22 AM) (12/21/17 12:55 AM) Platelet [133-450 113 K/CMM 130 K/CMM K/CMM] *LOW* *LOW* (12/22/17 3:22 AM) (12/21/17 12:55 AM) Segs [45.0-75.0 %] 91.2 % 65.3 % *HI* (12/21/17 12:55 AM) (12/22/17 3:22 AM) Lymphocytes 2.9 % 14.4 % [20.0-40.0 %] *LOW* *LOW* (12/22/17 3:22 AM) (12/21/17 12:55 AM) Monocytes [2.0-12.0 5.8 % 13.5 % %] (12/22/17 3:22 AM) *HI* (12/21/17 12:55 AM) Eosinophils [0.0-4.0 6.3 % %] *HI* (12/21/17 12:55 AM) Basophils [0.0-1.0 0.1 % 0.5 % %] (12/22/17 3:22 AM) (12/21/17 12:55 AM) Neutrophils # 7.8 K/CMM 3.5 K/CMM [1.5-8.1 K/CMM] (12/22/17 3:22 AM) (12/21/17 12:55 AM) Lymphocytes # 0.2 K/CMM 0.8 K/CMM [1.0-5.5 K/CMM] *LOW* *LOW* (12/22/17 3:22 AM) (12/21/17 12:55 AM) Monocytes # [0.0-0.8 0.5 K/CMM 0.7 K/CMM K/CMM] (12/22/17 3:22 AM) (12/21/17 12:55 AM) Eosinophils # 0.3 K/CMM [0.0-0.5 K/CMM] (12/21/17 12:55 AM) PT [12.0-14.7 14.7 seconds seconds] (12/21/17 12:55 AM) INR [0.85-1.17] 1.15 (12/21/17 12:55 AM) PTT [22.9-35.8 30.0 seconds seconds] (12/21/17 12:55 AM) Immunizations Not Given Vaccine Date Status Refusal Reason pneumococcal 23-valent vaccine1 04/24/18 Not Given Patient Refuses 1Result Comment: states she had the vaccine in December 2017 Procedures Procedure Date Related Diagnosis Body Site Status Bilateral extraction of cataracts Completed Endoscopy of upper gastrointestinal tract and Completed dilation of esophageal stricture Social History Social History Type Response Smoking Status Never smoker; Ready to change: No; Concerns about tobacco use in household: No; Exposure to Tobacco Smoke None; Cigarette Smoking Last 365 Days No; Reg Smoking Cessation Counseling No entered on: 05/22/18 Assessment and Plan Extracted from: Title: Clinical Document Author: Howie Kenyon MD Date: 12/22/17 Hospitalist Discharge Note [facility] Howie Kenyon MD ADMIT DATE: 12/21/2017 DISCHARGE DATE: 12/22/2017 DISCHARGE TO: Home DISCHARGE FOLLOW UP: With her PCP as an outpatient DISCHARGE DIAGNOSIS: 1. Acute bronchitis with asthma exacerbation 2. Sleep apnea 3. History of urinary incontinence CONSULTATIONS: None PROCEDURES: None PERTINENT TESTS: None HOSPITAL COURSE: Ms. Swartz is a 72-year-old female with a history of asthma and COPD who presents the emergency room complaining of worsening dyspnea. She clinically she appeared to have a COPD exacerbation with possibility of acute bronchitis as well. She was placed in observation and given aggressive DuoNeb and steroid treatments. She was placed on supplemental oxygen and antibiotics. Patient did well. Her respiratory status improved. She was transitioned to p.o. steroids. In addition she was transitioned to p.o. antibiotics. On the day of discharge her room air sats were 99%. She is feeling much better her history status has improved dramatically and she will be discharged home later today in stable condition. She does have a rescue inhaler at home as well as taking Advair. She will be discharged later today in stable condition. DISCHARGE NOTE: Restrictions: None Activity: as tolerated Diet: cardiac Code Status: Full code Medications: see d/c nancy KRUGER time: 35 min Extracted from: Title: Clinical Document Author: Howie Kenyon MD Date: 12/22/17 Hospitalist Progress Note [facility] Howie Kenyon MD Progress Note - Daily [facility] Completed: Dec, 13:25 by Howie Kenyon MD RM: CCDU - 11, SE CCDUBADEEPA RAMOS A72y (: 1945) F Attending: Flako Cruz MDPhone: Service: Internal Medicine Reason for Admission: ACUTE EXACERBATION OF COPD Working DRG: Code status: None Specified=FULL CODECurrent diet: Heart healthy Isolation: No Isolation/Standard Precautions Allergies: amoxicillin(HALLUCINATIONS), ampicillin(HALLUCINATIONS, Amoxicillin) SUBJECTIVE Patient seen and examined at bedside. No overnight events. She states she feels much better. No shortness of breath or chest pain reported. OBJECTIVE GENERAL: In no apparent distress at this time. HEENT: EOMI. NECK: Supple. No jugular venous distention or bruits. CARDIOVASCULAR: Regular rate and rhythm, S1, S2 positive. LUNGS: Clear to auscultation bilateral. No accessory muscle use GASTROINTESTINAL: Soft, nontender, nondistended, positive bowel sounds. EXTREMITIES: No clubbing, cyanosis or edema. NEUROLOGICAL: Intact. No gross deficits noted. SKIN: no rashes noted. 24hr Labs 12/22 0322 Glucose Oas373 H BUN46 H Creatinine Lvl1.83 H Sodium Gqm448 Potassium Lvl4.8 Chloride Vke434 H CO225 AGAP11.8 Calcium Lvl8.5 eGFR27 WBC8.6 RBC4.10 L Hgb11.6 L Hct34.8 L MCV85.0 MCH28.2 MCHC33.2 RDW14.6 H Cdsicwny321 L MPV8.5 Segs91.2 H Monocytes5.8 Lymphocytes2.9 L Basophils0.1 Segs-Bands #7.8 Lymphocytes #0.2 L Monocytes #0.5 Mcneill still necessary (Yes/No): Line still necessary (Yes/No): VitalsTmp(F)[id number] 12/22 11:5197.385386/663780 3.0L/m 12/22 07:2697.593080/914616 3.0L/m 12/22 06:51 98 3.0L/m 12/22 06:03 1897--- 12/22 03:1197.151437/504519 3.0L/m 24 Hr Tmax: 98.6F (37.00c) at 12/21 23:47Vital Signs are the last 5 in the past 48 hours. DateWt(kg)Wt(lb)Ht(cm)Ht(in)Method 12/22 90.91 200.41341.40 60.00Estimated 12/21 (initial) 88.64 195.00308.94 61.00Estimated I&ORecordInOutBal 1124hr Tot 75 0 75 1024hr Tot 75 0 75 Medications (6) Active Scheduled Meds (4): 12/22/17 acetylcysteine (acetylcysteine 20% inhalation solution) 400 mg INHALATION RQ6H 12/21/17 albuterol-ipratropium (albuterol-ipratropium 2.5-0.5 mg inhalation solution) 3 mL NEB RQ6H 12/21/17 levofloxacin 750 mg IVPB [id number] 100 ml/hr 12/21/17 predniSONE 40 mg PO Daily Unscheduled Meds: None PRN Meds: None One Time Meds (1): 12/21/17 (Completed) azithromycin 500 mg PO ONCE Continuous Infusions (1): 12/21/17 Sodium Chloride 0.9% IV 1,000 mL (NS 1,000 mL) 1,000 mL 75 ml/hr ASSESSMENT & PLAN 1. COPD exacerbation the patient felt much better. She will be discharged home. At home she has Advair and a rescue inhaler. Will give a prednisone taper. Check room air saturations prior to discharge 2. Obstructive sleep apnea 3. Discharge home
--- OUTSIDE RECORDS SUMMARY | 2018-10-05 16:46 | XMS REPORT | Clinical Summary ---
Author Author [facility] Address Unknown Phone Unavailable Care Team Providers Care [employer] Name Role Phone Mary Shields MD PCP Allergies Comments Active Allergy Reactions Severity Noted Date Unknown Amoxicillin 08/07/2017 Does not remember Ampicillin 05/23/2017 Hallucinations Prednisone 05/23/2017 Medications End Date Status Medication Sig Dispensed Refills Start Date Active fluticasone-salmeterol Inhale 1 puff 0 (ADVAIR) 250-50 mcg/dose by mouth via diskus inhaler inhaler daily . Active albuterol (ACCUNEB) 0.63 Take 1 ampule 0 mg/3 mL nebulizer by solution nebulization every 6 (six) hours as needed for Wheezing. Active escitalopram oxalate Take 10 mg by 0 (LEXAPRO) 10 MG tablet mouth daily. Active solifenacin (VESICARE) 5 Take 10 mg by 0 MG tablet mouth daily. 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 Last Filed Vital Signs Not on file Plan of Treatment Not on file Results Not on fileafter 10/04/2017 Insurance Payer Benefit Subscriber ID Type Phone Address Plan / Group [facility] xxxxxxxxxxx MEDICARE ADV Advance Directives Patient has advance care planning documents on file. For more information, [place] contact: [facility] [address] [place] [address]
--- OUTSIDE RECORDS SUMMARY | 2018-10-05 16:46 | XMS REPORT | Summary of Care ---
Author Author [facility] Organization [facility] Address Unknown Phone Unavailable Encounter HQ Gee(LOGAN) [id number] Date(s): 02/04/18 - 02/04/18 [facility] [address] [place] [address]- Encounter Diagnosis Closed head injury (Discharge Diagnosis) - 02/04/18 Thyroid nodule (Discharge Diagnosis) - 02/04/18 Laceration of scalp (Discharge Diagnosis) - 02/04/18 Laceration without foreign body of scalp, initial encounter (Final) - 04/14/18 Unspecified injury of head, initial encounter (Final) - Nontoxic single thyroid nodule (Final) - Fall in (into) shower or empty bathtub, initial encounter (Final) - Other termination clerk (current) drug therapy (Final) - Discharge Disposition: Intermediate Care Attending Physician: Leticia De Luna DO Vital Signs Most recent to 1 2 oldest [Reference Range]: Height 154.94 cm (02/04/18 7:08 PM) Temperature Oral 98.1 DegF 98.3 DegF [96.4-99.1 DegF] (02/04/18 10:08 PM) (02/04/18 7:08 PM) Blood Pressure 124/80 mmHg [90-140/60-90 mmHg] (02/04/18 7:08 PM) Systolic Blood 127 mmHg Pressure [90-140 (02/04/18 10:08 PM) mmHg] Diastolic Blood 81 mmHg Pressure [60-90 (02/04/18 10:08 PM) mmHg] Respiratory Rate 18 BRMIN 18 BRMIN [14-20 BRMIN] (02/04/18 10:08 PM) (02/04/18 7:08 PM) Peripheral Pulse 76 bpm 90 bpm Rate [60-100 bpm] (02/04/18 10:08 PM) (02/04/18 7:08 PM) Weight 113.636 kg (02/04/18 7:08 PM) Body Mass Index 47.34 m2 (02/04/18 7:08 PM) Problem List No data available for this section Allergies, Adverse Reactions, Alerts Substance Reaction Severity Status ampicillin Amoxicillin Active HALLUCINATIONS amoxicillin HALLUCINATIONS Active predniSONE Active Medications No data available for this section Results No data available for this section Immunizations Not Given Vaccine Date Status Refusal [...] No entered on: 05/22/18 Assessment and Plan No data available for this section
--- OUTSIDE RECORDS SUMMARY | 2018-10-05 16:47 | XMS REPORT ---
Author Author [facility] Address Unknown Phone Unavailable Care Team Providers Care Airplane Flight Attendant Name Role Phone SANDRA TOURE Unavailable Unavailable JACKLYN CARTER Unavailable Unavailable Problems This patient has no known problems. Allergies, Adverse Reactions, Alerts This patient has no known allergies or adverse reactions. Medications This patient has no known medications. Results Test Description Test Time Test Comments Text Results Atomic Results Result Comments TISSUE EXAM 2017-08-27 15:36:00 Surgical Pathology Report Case: [id number] Authorizing Provider: Alem Toure, Collected: 08/23/2017 0841 Ordering Location: [facility] Received: 08/23/2017 0913 SERVICES Pathologist: Mya Naylor MD Specimen: Soft Tissue, Other, zenkers SOFT TISSUE, ESOPHAGUS, DIVERTICULECTOMY: - SQUAMOUS MUCOSA LINED DIVERTICULUM WITH PARAKERATOSIS, ACUTE AND CHRONIC INFLAMMATION, AND FIBROSIS; COMPATIBLE WITH ZENKER'S DIVERTICULUM- NO DYSPLASIA OR MALIGNANCY SEEN Signing Pathologist Direct Phone Line: [phone] signed by Mya Naylor MD on 08/27/2017 at 3:36 [id number]'s diverticulumZenker's diverticulumReceived fresh labeled "soft tissue, other", description "Zenker's" is a 2.0 x 1.5 x 0.3 cm purple-guthrie to wright-white, irregular, mucosa-covered fragment of soft tissue. Sectioning reveals no discrete masses. The specimen is entirely submitted in cassettes A1-A2. DB/plPerformed. AFB CULTURE + SMEAR 2017-07-11 22:21:00 CULTURE (BEAKER) (test qyil=0405) No acid-fast bacilli isolated in 42 days AFB SMEAR (BEAKER) (test dmoa=162) No acid fast bacilli seen FUNGUS CULTURE + [id number] 09:24:00* Test Item Value Reference Range Comments CULTURE (BEAKER) (test qltq=7584) No fungus isolated in 28 days FUNGUS SMEAR (BEAKER) (test zgps=8300) No fungi seen LEGIONELLA [id number] 07:28:00* Test Item Value Reference Range Comments CULTURE (BEAKER) (test ijlx=1229) No Legionella species isolated BRONCHIAL CULTURE + GRAM [id number] 12:16:00* Test Item Value Reference Range Comments CULTURE (BEAKER) (test weni=0899) Clindamycin (test code=10) Erythromycin (test code=4) Linezolid (test code=40) Nitrofurantoin (test code=23) Oxacillin (test code=14) Rifampin (test code=43) Tetracycline (test code=2) Trimethoprim + Sulfamethoxazole (test code=47) Vancomycin (test code=13) CULTURE (BEAKER) (test hjmz=5128) <1+ Methicillin resistant Staphylococcus aureus GRAM STAIN RESULT (BEAKER) (test vjfd=7973) 4+ WBCs GRAM STAIN RESULT (BEAKER) (test iiyb=298362) No organisms seen <1+ Normal respiratory pete presentTISSUE [id number] 17:43:00Surgical Pathology Report Case: [id number] Authorizing Provider: Jacklyn Carter MD Collected: 05/23/2017 0908 Ordering Location: [facility] Received: 05/23/2017 1052 SERVICES Pathologist: Andrew Ovieod MD Specimen: Lung, Left, LEFT MAINSTEM ENDOBRONCHIAL BX A. LUNG, LEFT MAINSTEM, ENDOBRONCHIAL BIOPSY: - INFLAMED RESPIRATORY MUCOSA WITH REACTIVE CHANGES - NEGATIVE FOR MALIGNANCY (SEE C OMMENT) Signing Pathologist Direct Phone Line: [phone] s igned by Andrew Oviedo MD on 05/24/2017 at 5:43 PMSections show multiple fragments of respiratory mucosa with marked chronic inflammation and denudation of the epithelium. Focal patchy active inflammation is also seen. No alveolated lung parenchyma is seen.Special stain for GMS and AFB are negative for fungal a nd acid-fast micro-organisms respectively. Correlation with cultures and serolog y is recommended to exclude infection.[id number] Left mainstem endo bronchial biopsy of lungThe specimen is received in a formalin-filled container and labeled with the patient's information and labeled "left lung mainstem endob ronchial biopsy" and consists of multiple fragments of guthrie-red soft tissue rangi ng from less than 0.1 to 0.2 cm, submitted entirely A1. CG/pl Performed.CYTOLOGY 2017-05-23 15:53:00Medical Cytology Report Case: [id number] Authorizing Provider: Jacklyn Carter MD Collected: 05/23/2017 0905 Ordering Location: [facility] Received: 05/23/2017 1126 SERVICES Pathologist: Christen Higuera MD Specimen: Lung, Left, CRR LEFT LUNG BRUSHING (CYTOSPINS): - NO MALIGNANT CELLS IDENTIFIED Signing Pathologist Direct Phone Line: [phone] signed by Christen Higuera MD on 05/23/2017 at 3:53 PMPlease see the concurrent surgical biopsy ([id number]) for further evaluation. 13045Hgfq lung atelectasis with left mainstem endobronchial opacity LEFT LUNG BRUSHING1 brush tip in cytorich red; 2 cytospinsCollected: 130312Eplkjvic: [id number] [facility], Department of Pathology, [address] [place] [address], [facility], [facility] of [facility], [address] [place] [address], [id number] 15:49:00Medical Cytology Report Case: [id number] Authorizing Provider: Jacklyn Carter MD Collected: 05/23/2017 0903 Ordering Location: [facility] Received: 05/23/2017 1126 SERVICES Pathologist: Christen Higuera MD Specimen: Lung, Left Upper Lobe, Routine cyto in CRR LEFT UPPER LOBE LUNG BAL (CYTOSPINS): - NO MALIGNANT CELLS IDENTIFIED - ACUTE INFLAMMATORY CELLS PRESENT Signing Pathologist Direct Phone Line: [phone] signed by Christen Higuera MD on 05/23/2017 at 3:49 PMPlease see the concurrent surgical biopsy ([id number]) for further evaluation. 36485Kner lung atelectasis with left mainstem endobronchial opacity LEFT UPPER LOBE LUNG BAL25 mls in cytorich red; 4 cytospinsCollected: [id number]: [id number] [facility], Department of Pathology, [address] [place] [address], [facility], Department of [facility]ology, [address] [place] [address], YYXO/CONCENTRATION [id number] 14:29:00* Test Item Value Reference Range Comments CONCENTRATION CHARGED (BEAKER) (test eqzu=2337) Done CYTOLOGY [id number] 13:00:00* Test Item Value Reference Range Comments CYTOLOGY RESULT POINTER (BEAKER) (test moce=5413) See Separate Report CYTOLOGY [id number] 13:00:00* Test Item Value Reference Range Comments CYTOLOGY RESULT POINTER (BEAKER) (test esec=0652) See Separate Report [id number] 07:18:00* Test Item Value Reference Range Comments PARTIAL THROMBOPLASTIN TIME (BEAKER) (test tefd=673) 31.6 seconds 22.5-36.0 PROTHROMBIN TIME/[id number] 07:17:00* Test Item Value Reference Range Comments PROTIME (BEAKER) (test duxw=442) 14.8 seconds 11.7-14.7 INR (BEAKER) (test oezp=206) 1.2 <=5.9 RECOMMENDED COUMADIN/WARFARIN INR THERAPY RANGESSTANDARD DOSE: 2.0 - 3.0 Inclu bria: PROPHYLAXIS for venous thrombosis, systemic embolization; TREATMENT for luís ous thrombosis and/or pulmonary embolus.HIGH RISK: Target INR is 2.5-3.5 for pat ients with mechanical heart valves.PLATELET [id number] 07:01:00* Test Item Value Reference Range Comments PLATELET COUNT (BEAKER) (test ltza=358) 142 K/CU MM 150-450
[2018-10-05] MEDS ORDERED: ASPIR 8181 MG (17:32)
[2018-10-05] MEDS ORDERED: ADVAIR 100-501 EACH (17:32)
--- NOTE | 2018-10-05 17:43 | Diagnostic Imaging Report ---
EXAMINATION: CXR 1 W - [facility] INDICATION: Chest and back pain. Shortness of breath. COMPARISON: None FINDINGS: TUBES and LINES: None. LUNGS: Lungs are well inflated. Bilateral peribronchial cuffing. Possible right infrahilar airspace opacity. PLEURA: No pleural effusion or pneumothorax. HEART AND MEDIASTINUM: Cardiac size is mildly enlarged. There are atherosclerotic calcifications within the aorta. BONES AND SOFT TISSUES: No acute osseous lesion. Soft tissues are unremarkable. UPPER ABDOMEN: No free air under the diaphragm. IMPRESSION: 1. Bilateral peribronchial cuffing, which could represent viral etiology or reactive airway disease. 2. Possible right infrahilar consolidative pneumonia. Signed by: Dr. Owen Urbina M.D. on 10/05/2018 5:39 PM
[2018-10-05] MEDS ORDERED: ALBUTEROL SULF 0.083% NEB SOLN 3 ML NEB NEB SCH (18:00)
[2018-10-05] MEDS ORDERED: LEVOFLOXACIN 750MG/D5W 150ML IV SCH (18:00)
[2018-10-05] MEDS ORDERED: SODIUM CHLORIDE FLUSH 10 ML SYR INJ PRN (18:00)
[2018-10-05] MEDS ORDERED: IPRATROPIUM BROMIDE 0.02% 2.5 ML NEB NEB SCH (18:00)
[2018-10-05] MEDS ORDERED: ASPIRIN 81 MG CHEW TAB PO ONE ×2 (18:00)
[2018-10-05] MEDS ORDERED: ALBUTEROL/IPRATROPIUM 3 ML NEB ONE (18:17)
--- OUTSIDE RECORDS SUMMARY | 2018-10-05 18:22 | XMS REPORT | Clinical Summary ---
Author Author [facility] Address Unknown Phone Unavailable Care Team Providers Care Tube Carrier Name Role Phone Mary Shields MD PCP [...] ID Type Phone Address Plan / Group [facility] xxxxxxxxxxx MEDICARE ADV Advance Directives Patient has advance care planning documents on file. For more information, reny [place] contact: [facility] [address] [place] [address]
--- OUTSIDE RECORDS SUMMARY | 2018-10-05 18:27 | XMS REPORT | Clinical Summary ---
Author Author [facility] Address Unknown Phone Unavailable Care Team Providers Care Lithoplate Maker Name Role Phone Mary Shields MD PCP [...] file. For more information, reny [place] contact: [facility] [address] [place] [address]
[2018-10-05] MEDS: ALBUTEROL SULF 0.083% NEB SOLN 3 ML NEB NEB SCH ×2 (19:00→22:55)
[2018-10-05] MEDS ORDERED: LEVOFLOXACIN 500MG/D5W 100ML 100 ML IV ONE (19:00)
[2018-10-05] MEDS: IPRATROPIUM BROMIDE 0.02% 2.5 ML NEB NEB SCH ×2 (19:00→22:55)
--- OUTSIDE RECORDS SUMMARY | 2018-10-05 19:34 | XMS REPORT | Clinical Summary ---
Author Author [facility] Address Unknown Phone Unavailable Care Team Providers Care Career Services Manager Name Role Phone Mary Shields MD PCP [...] ID Type Phone Address Plan / Group [facility] xxxxxxxxxxx MEDICARE ADV Advance Directives Patient has advance care planning documents on file. For more information, [place]y [place] contact: [facility] [address] [place] [address]
[2018-10-05 20:20] VITALS: BP 122/60
--- NOTE | 2018-10-05 20:20 | NUR ---
patient is a new admit that arrived via stretcher. patient is awake and talking. patient has been assisted into the bed. bed is in lowest position and call reyes is within reach. will continue to monitor patient.
[2018-10-05 23:52] LABS: CREATINE KINASE 18 IU/L (29-168)
[2018-10-06] VITALS: BP 109/52
[2018-10-06] MEDS: ALBUTEROL SULF 0.083% NEB SOLN 3 ML NEB NEB SCH ×3 (02:45→11:00)
[2018-10-06 04:00] VITALS: BP 129/61
[2018-10-06 06:01] LABS: BASOPHILS % 0.2 % (0.0-1.0); EOSINOPHILS # (AUTO) 0.2 (0.0-0.4); HEMATOCRIT 35.9 % (34.2-44.1); HEMOGLOBIN 11.1 g/dL (12.0-16.0); LYMPHOCYTES # (AUTO) 0.9 (1.0-3.2); LYMPHOCYTES % 15.3 % (18.0-39.1); MEAN CORPUSCULAR HEMOGLOBIN 27.8 pg (28-32); MEAN CORPUSCULAR HGB CONC 30.9 g/dL (31-35); MONOCYTES # (AUTO) 0.5 (0.2-0.8); MONOCYTES % 9.4 % (4.4-11.3); NEUTROPHILS # (AUTO) 4.1 (2.1-6.9); NEUTROPHILS % 70.8 % (38.7-80.0); PLATELET COUNT 124 x10e3/uL (140-360); RED BLOOD COUNT 3.99 x10e6/uL (3.6-5.1); RED CELL DISTRIBUTION WIDTH 13.6 % (11.7-14.4)
[2018-10-06 06:28] LABS: ANION GAP 12.1 mmol/L (8-16); CALCIUM 9.1 mg/dL (8.4-10.2); CREATININE, SERUM 1.77 mg/dL (0.57-1.11); POTASSIUM 4.1 mmol/L (3.5-5.1)
[2018-10-06] MEDS: IPRATROPIUM BROMIDE 0.02% 2.5 ML NEB NEB SCH ×2 (07:00→11:00)
--- NOTE | 2018-10-06 07:09 | NUR ---
report given to day nurse. patient is resting in bed. bed is in lowest position and call reyes is within reach.
[2018-10-06 07:29] VITALS: BP 134/72
[2018-10-06 10:10] VITALS: BP 134/72
[2018-10-06 10:14] LABS: CREATINE KINASE 15 IU/L (29-168)
[2018-10-06] MEDS ORDERED: ALBUTEROL SULF 0.083% NEB SOLN 3 ML NEB ONE ×2 (10:43→14:33)
[2018-10-06] MEDS ORDERED: IPRATROPIUM BROMIDE 0.02% 2.5 ML NEB ONE (10:43)
[2018-10-06 11:23] VITALS: BP 137/59
[2018-10-06] MEDS ORDERED: AZITHROMYCIN250 MG PO (14:20)
--- NOTE | 2018-10-06 14:20 | NUR ---
REYES letter signed by TAVON. Copy placed in chart.
--- NOTE | 2018-10-06 14:40 | NUR ---
patient discharged home, not in any distress or pain, IV canula removed, no ss of infiltration, tele box returned, prescription given, transported via wc to front lobby
[2018-10-06] MEDS ORDERED: LEVOFLOXACIN 500MG/D5W 100ML 100 ML IV ONE (18:00)
--- NOTE | 2018-10-06 21:06 | Discharge Summary ---
PRIMARY CARE DOCTOR: Dr. Katherine Campos. FINAL DIAGNOSIS: Noncardiac chest pain. SECONDARY DIAGNOSES: 1. Possible viral bronchitis, cannot rule out atypical pneumonia. 2. Morbid obesity. 3. Stable asthma. 4. Mild thrombocytopenia, asymptomatic. 5. Chronic kidney disease stage 3, stable. CONSULTANTS: None. PROCEDURES/STUDIES PERFORMED: None. HISTORY: Per H and P. HOSPITAL COURSE: The patient was ruled out of acute myocardial infarction with 3- troponins. The patient's sharp chest pain did not recur. During the chest x-ray finding possibly, we are dealing with viral bronchitis as a reason for her chest pain, however, cannot rule out atypical pneumonia. Therefore, patient will go home on a Z-Stephan. I have updated the sister at the bedside. Also, I have updated her primary care doctor. The patient will follow up with her primary care doctor in 1 week. CONDITION ON DISCHARGE: Improved. DISCHARGE MEDICATIONS: Please see medication reconciliation form. MD TODD Howard/VICK /[id number] cc: Judy Caballero
== END 2018-10-06 14:30 | disposition home or self-care (01) ==
LOC: FSED 16:43 → UNDOADMOB 18:19 → ERHOLD 18:19 → UNDOADMOB 18:25 → ERHOLD 18:25 → IMCU 21:06
PROVIDERS: ADMIT Internal Medicine; ATTEND Internal Medicine
DX: R07.89 Other chest pain (principal); J15.9 Unspecified bacterial pneumonia; Z88.1 Allergy status to other antibiotic agents; Z88.8 Allergy status to other drugs, medicaments and biological substances; E66.01 Morbid (severe) obesity due to excess calories; Z68.41 Body mass index [BMI] 40.0-44.9, adult; J45.909 Unspecified asthma, uncomplicated; D69.6 Thrombocytopenia, unspecified; N18.3 Chronic kidney disease, stage 3 (moderate)
CPT/HCPCS: 36415 ×2; 71045; 80048 ×2; 80076; 82550 ×2; 82553 ×2; 84484 ×2; 85025 ×2; 87040; 93005; 94640 ×3; 99284; G0378 ×2